=== PATIENT | female | born 1955 | race Caucasian/White ===

== ENCOUNTER 2019-03-18 18:36 | Emergency (ER) | payer BC ==
[~2019-03-18] VITALS: Ht 160 cm; Wt 61.4 kg
[2019-03-18 18:38] VITALS: Ht 160 cm; Wt 61.4 kg
[2019-03-18] MEDS ORDERED: SYNTHROID100 MCG PO (18:43)
[2019-03-18] MEDS ORDERED: BACTRIM 400-801 TAB PO (18:43)
[2019-03-18] MEDS ORDERED: SULFAMETHOXAZOL1 TA3 PO (19:01)
[2019-03-18 19:18] VITALS: BP 132/70
== END 2019-03-18 19:18 | disposition home or self-care (01) ==
LOC: D.ER 18:36
DX: T63.301A Toxic effect of unspecified spider venom, accidental (unintentional), initial encounter (principal); Y92.89 Other specified places as the place of occurrence of the external cause; I96 Gangrene, not elsewhere classified

== ENCOUNTER 2020-02-15 05:54 | Inpatient (IN) | payer BC ==
[~2020-02-15] VITALS: Ht 160 cm; Wt 59.1 kg
[2020-02-15] VITALS (9 sets, daily range): BP systolic 108–159; BP diastolic 54–81; Ht 160 cm; Wt 59.1 kg
[~2020-02-15 05:54] MED LIST: BACTRIM 400-801 TAB PO; SULFAMETHOXAZOL1 TA3 PO; SYNTHROID100 MCG PO
--- NOTE | 2020-02-15 06:24 | NUR ---
INFORMATION/CONSENTS FAXED TO [facility]
[2020-02-15 06:33] LABS: BASOPHILS 0.1 % (0-2); EOSINOPHILS 2.7 % (0-7); HEMATOCRIT 38.2 % (36.0-48.0); HEMOGLOBIN 12.4 g/dL (12-16); IMMATURE GRANULOCYTES 0.1 % (0-5); LYMPHOCYTES 42.6 % (15-50); MCH 30.2 pg (26.0-34.0); MCHC 32.5 g/dL (31.0-37.0); MCV 93.2 fL (80.0-100.0); MEAN PLATELET VOLUME 8.9 fL (7.4-10.4); MONOCYTES 7.8 % (2-11); NEUTROPHILS 46.7 % (40-80); PLATELET COUNT 377 10x3/uL (130-400); RDW 13.7 % (11.5-14.5); WBC 7.7 10x3/uL (4.8-10.8)
[2020-02-15 06:36] LABS: CALC OSMOLALITY 281 mosm/kg (275-300); CALCIUM 7.6 mg/dL (8.5-10.1); CARBON DIOXIDE 25.7 mmol/L (21.0-32.0); CHLORIDE - SERUM 103 mmol/L (98-107); CREATININE - SERUM 0.9 mg/dL (0.6-1.3); GLUCOSE 105 mg/dL (74-106); POTASSIUM - SERUM 3.2 mmol/L (3.5-5.1); SODIUM 140 mmol/L (136-145); UREA NITROGEN 20 mg/dL (7-18); eGFR NON AFRICAN AMERICAN 67 mL/min (90-120)
--- NOTE | 2020-02-15 06:40 | NUR ---
ON TELECONFERENCE WITH NEUROLOGIST DR. ROSARIO AT [facility] FOR EXAM
--- NOTE | 2020-02-15 06:57 | NUR ---
NO TPA ORDERED FOR PT AT THIS TIME.
[2020-02-15 07:02] LABS: ALKALINE PHOSPHATASE 81 U/L (30-120); ALT (SGPT) 22 U/L (10-68); C-REACTIVE PROTEIN 0.6 mg/dL (0.0-0.9); CREATINE KINASE 339 UL (21-215); PRO BNP 231 pg/mL (0-125); PROTEIN - SERUM 7.3 g/dL (6.4-8.2); THYROID STIMULATING HORMONE 0.32 uIU/mL (0.36-3.74); TROPONIN-I < 0.017 ng/mL (0.000-0.060)
--- NOTE | 2020-02-15 08:03 | NUR ---
UNABLE TO DO A MRI, PT HAS AN IMPLANT DEVICE
--- NOTE | 2020-02-15 08:40 | NUR ---
RECEIVED PT FROM ER. RESTING COMFORTABLY IN BED. DENIES ANY NEEDS AT THIS TIME. WILL CONTINUE TO MONITOR.
--- NOTE | 2020-02-15 08:44 | NUR ---
PT DOES NOT APPEAR TO BE CONFUSED, BUT POSSIBLY DISORIENTED. PT IS VERY REPETITIVE.
--- NOTE | 2020-02-15 14:17 | NUR ---
I have reviewed this patient and I concur with the Shift Assessment completed by the Licensed Practical Nurse today this shift.
--- NOTE | 2020-02-15 15:01 | NUR ---
ADMINISTERED PRN NORCO 5 FOR PAIN LEVEL OF 6/10 IN HER HEAD. RESTING COMFORTABLY IN BED. DENIES ANY NEEDS AT THIS TIME. WILL CONTINUE TO MONITOR.
--- NOTE | 2020-02-15 16:24 | NUR ---
PATIENT OUT FOR CT VIA WHEELCHAIR.
[2020-02-15 23:10] LABS: BACTERIA MANY /hpf (NEGATIVE); BILIRUBIN NEGATIVE (NEGATIVE); GLUCOSE NEGATIVE (NEGATIVE); KETONE NEGATIVE (NEGATIVE); NITRITE POSITIVE (NEGATIVE); RED CELLS - URINE 0-5 /hpf (0-5); SPECIFIC GRAVITY 1.005 (1.005-1.020); UROBILINOGEN NORMAL (NORMAL); WHITE CELLS - URINE 0-5 /hpf (NEGATIVE)
--- NOTE | 2020-02-15 23:17 | NUR ---
WATCING TV QUEITLY WITH NO DISTRES NOTED. RESP UNLABORED. SL TO RAC WITHOUT REDNESS OR EDEMA NOTED.NO COMPLAITNS VOICED.CL IN REACH
--- NOTE | 2020-02-16 02:51 | NUR ---
I have reviewed this patient and I concur with the Shift Assessment completed by the Licensed Practical Nurse today this shift.
[2020-02-16 04:00] VITALS: BP 133/58
[2020-02-16 05:21] LABS: HEMATOCRIT 37.5 % (36.0-48.0); HEMOGLOBIN 12.1 g/dL (12-16); LYMPHOCYTES 43.7 % (15-50); MCH 30.1 pg (26.0-34.0); MCHC 32.3 g/dL (31.0-37.0); MCV 93.3 fL (80.0-100.0); MEAN PLATELET VOLUME 8.6 fL (7.4-10.4); NEUTROPHILS 49.1 % (40-80); PLATELET COUNT 334 10x3/uL (130-400); RBC 4.02 10x6/uL (4.00-5.40); RDW 13.5 % (11.5-14.5)
[2020-02-16 05:22] LABS: WBC 5.2 10x3/uL (4.8-10.8)
[2020-02-16 05:40] LABS: CARBON DIOXIDE 27.1 mmol/L (21.0-32.0); CHLORIDE - SERUM 106 mmol/L (98-107); CREATININE - SERUM 0.8 mg/dL (0.6-1.3); GLUCOSE 84 mg/dL (74-106); SODIUM 140 mmol/L (136-145); eGFR NON AFRICAN AMERICAN 76 mL/min (90-120)
[2020-02-16 05:41] LABS: CALC OSMOLALITY 277 mosm/kg (275-300); POTASSIUM - SERUM 3.8 mmol/L (3.5-5.1); UREA NITROGEN 13 mg/dL (7-18)
--- NOTE | 2020-02-16 07:43 | NUR ---
PT RESTING IN BED WITH EYES OPEN, ALERT AND ORIENTED. IV LOCATED TO RIGHT AC CURRENTLY SL. NO CURRENT S/S OF DISTRESS AT THIS TIME, DENIES CURRENT NEEDS, WILL CONT TO MONITOR.
[2020-02-16 09:19] VITALS: BP 135/85
[2020-02-16 12:43] VITALS: BP 127/56
[2020-02-16] MEDS ORDERED: LIPITOR20 MG PO (14:08)
[2020-02-16] MEDS ORDERED: ASPIRIN325 MG PO (14:09)
--- NOTE | 2020-02-16 16:09 | MORECARE ---
CASE MANAGEMENT DISCHARGE SUMMARY PATIENT: SHA LYNN UNIT: [id number] ADM DATE: 02/15/20 AGE: 64 : 55 SEX: F ROOM/BED: D.2215 AUTHOR: JUN ZHU PHYSICIAN: REFERRING PHYSICIAN: REYNA GARCIAS MD DATE OF SERVICE: 02/16/20 Discharge Plan Patient Name: SHA LYNN Facility: [facility]:[place] : 1955 Planned Disposition: Home Anticipated Discharge Date: 02/16/20 Discharge Date: Expected LOS: 1 Initial Reviewer: [email or web address] Initial Review Date: 02/15/2020 Generated: 02/16/20 5:08 pm Patient Name: SHA LYNN Page [id number] at 1609 All edits/amendments must be made on the electronic document DICTATION DATE: 02/16/201607 CLINICAL REHAB SPECIALIST: JAY 02/16/201607 RPT#: [id number] DC DATE: STATUS: ADM IN [facility] [address] [place] [address] END OF REPORT
--- NOTE | 2020-02-16 16:16 | MORECARE ---
CASE MANAGEMENT DISCHARGE SUMMARY PATIENT: SHA LYNN UNIT: [id number] ADM DATE: 02/15/20 AGE: 64 : 55 SEX: F ROOM/BED: D.2215 AUTHOR: JUN ZHU PHYSICIAN: REFERRING PHYSICIAN: REYNA GARCIAS MD DATE OF SERVICE: 02/16/20 Discharge Plan Patient Name: SHA LYNN Facility: [facility]:[place] : 1955 Planned Disposition: Home Anticipated Discharge Date: 02/16/20 Discharge Date: Expected LOS: 1 Initial Reviewer: [email or web address] Initial Review Date: 02/15/2020 Generated: 02/16/20 5:15 pm DCPIA - Discharge Planning Initial Assessment Updated by [email or web address]: Mikaela Moy on 02/16/20 4:15 pm * Is the patient Alert and Oriented? Yes * How many steps to enter\exit or inside your home? FOUR * PCP DR PHILIPPE * Pharmacy [facility] [address] * Preadmission Environment Home Alone * ADLs Independent * Equipment None * Other Equipment N/A * List name and contact numbers for known caregivers / representatives who currently or will assist patient after discharge: MICHELE AGUIRRE- FRIEND -- * Community resources currently utilized None * Please name any agencies selected above. N/A * Additional services required to return to the preadmission environment? Yes * Can the patient safely return to the preadmission environment? Yes * Has this patient been hospitalized within the prior 30 days at any hospital? No Patient Name: SHA LYNN Page 13421 at 1616 All edits/amendments must be made on the electronic document DICTATION DATE: 02/16/20 1615 HELMET BINDER: JAY 02/16/20 1615 RPT#: [id number] DC DATE: STATUS: ADM IN [facility] [address] [place] [address] END OF REPORT
--- NOTE | 2020-02-16 16:29 | MORECARE ---
CASE MANAGEMENT DISCHARGE SUMMARY PATIENT: SHA LYNN UNIT: [id number] ADM DATE: 02/15/20 AGE: 64 : 55 SEX: F ROOM/BED: D.6280 AUTHOR: JUN ZHU PHYSICIAN: REFERRING PHYSICIAN: REYNA GARCIAS MD DATE OF SERVICE: 02/16/20 Discharge Plan Patient Name: SHA LYNN Facility: [facility]:[place] : 1955 Planned Disposition: Home Anticipated Discharge Date: 02/16/20 Discharge Date: 02/16/2020 Expected LOS: 1 Initial Reviewer: [email or web address] Initial Review Date: 02/15/2020 Generated: 02/16/20 5:29 pm Comments DCP- Discharge Planning Updated by [email or web address]: Mikaela Moy on 02/16/20 3:[address] CM VISITED WITH THE PATIENT. SHE IS PACKED AND READY FOR DISCHARGE. SHE REPORTEDLY HAS REQUESTED REHAB SERVICES. CM REVIEWED HER PHYSICAL THERAPY EVAL. SHE REPORTEDLY STILL HAS NUMBNESS AND HEAVINESS OF THE LEDFT SIDE. SHE DID NOT HAVE A OT EVAL OR NEURO EVAL. SHE STATES SHE IS HAVING DIFFICULTY W/ THOUGHT PROCESS. YESTERDAY HAD MORE DIFFICULTY CONNECTING THOUGHTS AND WORDS. STILL FEELS SHE HAS DEFICITS. SHE PLANS TO FOLLOW UP WITH HER PCP- DR BARBOZA ON TUESDAY. CM ADVISED HER TO CALL EARLY AM. SHE WANTS HER RECORDS FORWARDED TO DR PHILIPPE'S OFFICE. PLAN IS TO OBTAIN NEUROLOGY EVALUATION, COGNITIVE ASSESSMENT& OCCUPATIONAL THERAPY EVAL . HER CAR IS IN THE PARKING LOT BUT SHE HAS SOMEONE TO PICK HER UP AND SOMEONE TO DRIVE HER CAR TO HER HOME.SHE HAS 2 FRIENDS TO ASSIST AT DISCHARGE. HER FAMILY IS IN [place]. DISCUSSED RISK FOR FALL WITH THE LEFT SIDED HEAVINESS AND WEAKNESS SHE REPORTS IN HER UPPER AND LOWER EXTREMITY. SHE WAS INDEPENDENT PRIOR TO ADMISSION. SHE ALSO REPORTS SOME VISUAL ISSUES. SHE WOULD LIKE HER RECORDS FAXED TO DR PHILIPPE'S OFFICE TUESDAY AM. DENIES ANY ADDITIONAL NEEDS AT THE PRESENT TIME. DCPIA - Discharge Planning Initial Assessment Updated by [email or web address]: Mikaela Moy on 02/16/20 4:15 pm * Is the patient Alert and Oriented? Yes * How many steps to enter\exit or inside your home? FOUR * PCP DR PHILIPPE * Pharmacy [facility] [address] * Preadmission Environment Home Alone * ADLs Independent * Equipment None * Other Equipment N/A * List name and contact numbers for known caregivers / representatives who currently or will assist patient after discharge: MICHELE AGUIRRE- FRIEND -- [phone] * Community resources currently utilized None * Please name any agencies selected above. N/A * Additional services required to return to the preadmission environment? Yes * Can the patient safely return to the preadmission environment? Yes * Has this patient been hospitalized within the prior 30 days at any hospital? No Last DP export: 02/16/20 3:16 pm Patient Name: SHA LYNN Page 83862 at 1629 All edits/amendments must be made on the electronic document DICTATION DATE: 02/16/201628 GOLF COURSE RANGER: JAY 02/16/20 1629 RPT#: [id number] DC DATE:02/16/20 STATUS: DIS IN [facility] [address] [place] [address] END OF REPORT
--- NOTE | 2020-02-18 13:06 | MORECARE ---
CASE MANAGEMENT DISCHARGE SUMMARY PATIENT: SHA LYNN UNIT: [id number] ADM DATE: 02/15/20 AGE: 64 : 55 SEX: F ROOM/BED: D.5304 AUTHOR: JUN ZHU PHYSICIAN: REFERRING PHYSICIAN: REYNA GARCIAS MD DATE OF SERVICE: 02/18/20 Discharge Plan Patient Name: SHA LYNN Facility: [facility]:[place] : 1955 Planned Disposition: Home Anticipated Discharge Date: 02/16/20 Discharge Date: 02/16/2020 Expected LOS: 1 Initial Reviewer: [email or web address] Initial Review Date: 02/15/2020 Generated: 02/18/20 2:05 pm Comments DCP- Discharge Planning Updated by [email or web address]: Mikaela Moy on 02/16/20 3:[address] CM VISITED WITH THE PATIENT. SHE IS PACKED AND READY FOR DISCHARGE. SHE REPORTEDLY HAS REQUESTED REHAB SERVICES. CM REVIEWED HER PHYSICAL THERAPY EVAL. SHE REPORTEDLY STILL HAS NUMBNESS AND HEAVINESS OF THE LEDFT SIDE. SHE DID NOT HAVE A OT EVAL OR NEURO EVAL. SHE STATES SHE IS HAVING DIFFICULTY W/ THOUGHT PROCESS. YESTERDAY HAD MORE DIFFICULTY CONNECTING THOUGHTS AND WORDS. STILL FEELS SHE HAS DEFICITS. SHE PLANS TO FOLLOW UP WITH HER PCP- DR BARBOZA ON TUESDAY. CM ADVISED HER TO CALL EARLY AM. SHE WANTS HER RECORDS FORWARDED TO DR PHILIPPE'S OFFICE. PLAN IS TO OBTAIN NEUROLOGY EVALUATION, COGNITIVE ASSESSMENT& OCCUPATIONAL THERAPY EVAL . HER CAR IS IN THE PARKING LOT BUT SHE HAS SOMEONE TO PICK HER UP AND SOMEONE TO DRIVE HER CAR TO HER HOME.SHE HAS 2 FRIENDS TO ASSIST AT DISCHARGE. HER FAMILY IS IN [place]. DISCUSSED RISK FOR FALL WITH THE LEFT SIDED HEAVINESS AND WEAKNESS SHE REPORTS IN HER UPPER AND LOWER EXTREMITY. SHE WAS INDEPENDENT PRIOR TO ADMISSION. SHE ALSO REPORTS SOME VISUAL ISSUES. SHE WOULD LIKE HER RECORDS FAXED TO DR PHILIPPE'S OFFICE TUESDAY AM. DENIES ANY ADDITIONAL NEEDS AT THE PRESENT TIME. DCPIA - Discharge Planning Initial Assessment Updated by [email or web address]: Mikaela oMy on 02/16/20 4:15 pm * Is the patient Alert and Oriented? Yes * How many steps to enter\exit or inside your home? FOUR * PCP DR PHILIPPE * Pharmacy [facility] [address] * Preadmission Environment Home Alone * ADLs Independent * Equipment None * Other Equipment N/A * List name and contact numbers for known caregivers / representatives who currently or will assist patient after discharge: MICHELE AGUIRRE- FRIEND -- [phone] * Community resources currently utilized None * Please name any agencies selected above. N/A * Additional services required to return to the preadmission environment? Yes * Can the patient safely return to the preadmission environment? Yes * Has this patient been hospitalized within the prior 30 days at any hospital? No Last DP export: 02/16/20 3:29 pm Patient Name: SHA LYNN Page 33783 at 1306 All edits/amendments must be made on the electronic document DICTATION DATE: 02/18/20 1305 WATER SPONGER: JAY 02/18/20 1305 RPT#: [id number] DC DATE:02/16/20 STATUS: DIS IN [facility] [address] [place] [address] END OF REPORT
== END 2020-02-16 16:17 | disposition home or self-care (01) | DRG 57 ==
LOC: D.ER 05:54 → D.MS 07:15 → OBSVTIME 07:53 → D.MS 16:07
PROVIDERS: Family Medicine; ADMIT Internal Medicine Nephrology; ATTEND Internal Medicine Nephrology
DX: G81.94 Hemiplegia, unspecified affecting left nondominant side (principal); N17.9 Acute kidney failure, unspecified; R47.1 Dysarthria and anarthria; E87.6 Hypokalemia

== ENCOUNTER 2020-02-17 13:54 | Emergency (ER) | payer BC ==
[~2020-02-17] VITALS: Ht 160 cm; Wt 61.4 kg
[~2020-02-17 13:54] MED LIST changes: +ASPIRIN325 MG PO; +LIPITOR20 MG PO
[2020-02-17 14:01] VITALS: Ht 160 cm; Wt 61.4 kg
[2020-02-17 15:13] LABS: HEMATOCRIT 41.3 % (36.0-48.0); HEMOGLOBIN 13.3 g/dL (12-16); LYMPHOCYTES 31.7 % (15-50); MCH 29.6 pg (26.0-34.0); MCHC 32.2 g/dL (31.0-37.0); MEAN PLATELET VOLUME 8.4 fL (7.4-10.4); NEUTROPHILS 61.5 % (40-80); PLATELET COUNT 348 10x3/uL (130-400); RBC 4.49 10x6/uL (4.00-5.40); RDW 13.1 % (11.5-14.5); WBC 5.3 10x3/uL (4.8-10.8)
[2020-02-17 15:29] LABS: NITRITE POSITIVE (NEGATIVE); SPECIFIC GRAVITY 1.005 (1.005-1.020)
[2020-02-17 15:30] LABS: BACTERIA MANY /hpf (NEGATIVE); BILIRUBIN NEGATIVE (NEGATIVE); EPITHELIAL CELLS NSEEN /hpf (0-5); GLUCOSE NEGATIVE (NEGATIVE); KETONE NEGATIVE (NEGATIVE); RED CELLS - URINE NONE SEEN /hpf (0-5); UROBILINOGEN NORMAL (NORMAL); WHITE CELLS - URINE OCC /hpf (NEGATIVE)
[2020-02-17 15:34] LABS: ANION GAP 12.9 mmol/L (8-16); CALCIUM 7.4 mg/dL (8.5-10.1); CREATININE - SERUM 0.9 mg/dL (0.6-1.3); POTASSIUM - SERUM 3.9 mmol/L (3.5-5.1)
[2020-02-17 15:37] LABS: ALBUMIN 3.5 g/dL (3.4-5.0); BILIRUBIN - TOTAL 0.37 mg/dL (0.2-1.3); PROTEIN - SERUM 6.5 g/dL (6.4-8.2)
[2020-02-17 17:04] VITALS: BP 133/98
[2020-02-17 17:10] LABS: UDS - AMPHET NEGATIVE QUAL (NEGATIVE); UDS - BARB NEGATIVE QUAL (NEGATIVE); UDS - BENZO NEGATIVE QUAL (NEGATIVE); UDS - COCAINE NEGATIVE QUAL (NEGATIVE); UDS - OPIATE POSITIVE QUAL (NEGATIVE); UDS - PCP NEGATIVE QUAL (NEGATIVE); UDS - THC NEGATIVE QUAL (NEGATIVE)
== END 2020-02-17 17:44 | disposition other institution (70) ==
LOC: D.ER 13:54
PROVIDERS: Family Medicine
DX: R51 Headache (principal); R53.1 Weakness; E03.9 Hypothyroidism, unspecified; I25.2 Old myocardial infarction; H53.9 Unspecified visual disturbance